=== PATIENT | male | born 1955 | race Caucasian/White ===

== ENCOUNTER → 2019-01-05 | Outpatient (REF) | payer BC ==
[~2019-01-05] MED LIST: LIAL1.2T PO
== END ==
LOC: M LAB REF 16:26
PROVIDERS: ATTEND Internal Medicine
DX: N52.9 Male erectile dysfunction, unspecified (principal)

== ENCOUNTER 2019-05-05 06:42 | Day surgery (SDC) | payer BC ==
[~2019-05-05] VITALS: Ht 177.8 cm; Wt 84.4 kg
[~2019-05-05 06:42] MED LIST changes: +NS 1,000 ML IV ONE
[2019-05-05] MEDS ORDERED: propofoL 200 MG/20 ML VIAL As Ordered ONE ×2 (07:35→08:04)
--- NOTE | 2019-05-05 07:59 | ROOR ---
Patient Name: Mark Almaraz Procedure Date: 05/05/2019 7:33 AM Date of : 1955 Age: 64 Room: [facility] Gender: Male Note Status: Finalized Procedure: Total Colonoscopy to cecum + Bx. 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 Procedure: Pre-Anesthesia Assessment: - The heart rate, respiratory rate, oxygen saturations, blood pressure, adequacy of pulmonary ventilation, and response to care were monitored throughout the procedure. The Colonoscope was introduced through the anus and advanced to the cecum, identified by appendiceal orifice and ileocecal valve. The colonoscopy was performed without difficulty. The patient tolerated the procedure well. The quality of the bowel preparation was excellent. Findings: The perianal and digital rectal examinations were normal. Non-bleeding internal hemorrhoids were found during retroflexion. The hemorrhoids were small and Grade I (internal hemorrhoids that do not prolapse). No other significant abnormalities were identified in a careful examination of the remainder of the colon. Multiple random biopsies were obtained with cold forceps for ulcerative colitis surveillance randomly in the rectum, in the sigmoid colon and in the ascending colon. The exam was otherwise without abnormality. Impression: - Non-bleeding internal hemorrhoids. - The examination was otherwise normal. - Multiple random biopsies were obtained in the rectum, in the sigmoid colon and in the ascending colon. - The exam was otherwise normal to the cecum. Recommendation: - Patient has a contact number available for emergencies. The signs and symptoms of potential delayed complications were discussed with the patient. Return to normal activities tomorrow. Written discharge instructions were provided to the patient. - High fiber diet. - Discharge patient to home. - Continue present medications. - Await pathology results. - Telephone GI clinic for pathology results in 1 week. - Repeat colonoscopy in 5 years for surveillance. - Return to referring physician. - The findings and recommendations were discussed with the patient's family. Mauri Baker MD Mauri Baker MD 05/05/2019 7:59:03 AM Electronically signed by Mauri Baker MD Number of Addenda: 0 Note Initiated On: 05/05/2019 7:33 AM Estimated Blood Loss: Estimated blood loss: none.
[2019-05-05 08:15] VITALS: BP 178/89
== END 2019-05-05 08:26 | disposition home or self-care (01) ==
LOC: M OPP 06:42
PROVIDERS: ATTEND Internal Medicine Gastroenterology
DX: K51.30 Ulcerative (chronic) rectosigmoiditis without complications (principal); K64.0 First degree hemorrhoids; Z79.899 Other long term (current) drug therapy; Z88.6 Allergy status to analgesic agent

== ENCOUNTER → 2023-02-15 | Outpatient (CLI) | payer MEDICARE ==
[~2023-02-15] MED LIST changes: -NS 1,000 ML IV ONE
== END ==
LOC: M RAD 11:00
PROVIDERS: ATTEND Physician Assistant
DX: M25.512 Pain in left shoulder (principal)

== ENCOUNTER 2024-03-10 11:26 | Day surgery (SDC) | payer MEDICARE ==
[~2024-03-10] VITALS: Ht 177.8 cm; Wt 84.0 kg
[~2024-03-10 11:26] MED LIST changes: +ATOR40TA75 PO; +NS 250 ML IV ONE; +SULF500T41 PO
[2024-03-10] MEDS ORDERED: LIDOCAINE 2% 100MG/5ML SDV (FOR ANES.) As Ordered ONE (12:31)
[2024-03-10] MEDS ORDERED: propofoL 200 MG/20 ML VIAL As Ordered ONE (12:31)
[2024-03-10 12:52] VITALS: TEMP 97.7
[2024-03-10 13:15] VITALS: BP 171/69; O2SAT 94
== END 2024-03-10 13:14 | disposition home or self-care (01) ==
LOC: M OPP 11:26
PROVIDERS: ATTEND Internal Medicine Gastroenterology
DX: Z12.11 Encounter for screening for malignant neoplasm of colon (principal); D12.0 Benign neoplasm of cecum; K51.00 Ulcerative (chronic) pancolitis without complications; K64.0 First degree hemorrhoids; K57.30 Diverticulosis of large intestine without perforation or abscess without bleeding; Z90.49 Acquired absence of other specified parts of digestive tract; E78.00 Pure hypercholesterolemia, unspecified; Z79.899 Other long term (current) drug therapy; Z88.6 Allergy status to analgesic agent; Z90.89 Acquired absence of other organs